=== PATIENT | male | born 1970 | race Hispanic/Latino ===

== ENCOUNTER → 2017-04-08 | Outpatient (CLI) | payer BC | LOC: RAH 08:50 | PROVIDERS: ATTEND General Practice | DX: S83.282A Other tear of lateral meniscus, current injury, left knee, initial encounter (principal); G95.19 Other vascular myelopathies; X58.XXXA Exposure to other specified factors, initial encounter; Y93.89 Activity, other specified; Y92.89 Other specified places as the place of occurrence of the external cause; Y99.8 Other external cause status | CPT/HCPCS: 73721 ==

== ENCOUNTER 2020-08-10 00:11 | Emergency (ER) | payer BC ==
[~2020-08-10] VITALS: Ht 170.2 cm; Wt 115.7 kg
[2020-08-10 00:40] VITALS: BP 123/88
[2020-08-10] MEDS ORDERED: HYDROCODONE/ACETAMINOPHEN 5/325 MG TAB PO ONE (01:45)
[2020-08-10] MEDS ORDERED: MORPHINE 4 MG SYG IM ONE (01:45)
[2020-08-10 01:55] VITALS: BP 118/82
== END 2020-08-10 02:02 | disposition home or self-care (01) ==
LOC: EDH 01:13
DX: M23.204 Derangement of unspecified medial meniscus due to old tear or injury, left knee (principal); M25.562 Pain in left knee; G89.29 Other chronic pain
CPT/HCPCS: 96372; 99284; J2270